=== PATIENT | female | born 1995 | race Caucasian/White ===

== ENCOUNTER 2016-08-18 18:43 | Inpatient (IN) | payer BC ==
[~2016-08-18] VITALS: Ht 165.1 cm; Wt 56.0 kg
[2016-08-18] MEDS ORDERED: SOD CHLORIDE 0.9% 500 ML IV STA (19:37)
[2016-08-18] MEDS ORDERED: LORAZEPAM 2 MG INJ IV ONE (20:00)
[2016-08-18 20:21] LABS: ADD SCAN DIFF NO
[2016-08-18 20:24] LABS: BASOPHILS % 0.3 % (0.0-2.0); EOSINOPHILS # 0.1 10^3/ul (0.0-0.5); EOSINOPHILS % 0.6 % (0.0-7.0); LYMPHOCYTES # 2.2 10^3/ul (0.8-2.9); LYMPHOCYTES % 18.5 % (15.0-51.0); MEAN CORPUSCULAR HEMOGLOBIN 26.7 pg (29.0-33.0); MEAN CORPUSCULAR HGB CONC 32.5 g/dl (32.0-37.0); MEAN CORPUSCULAR VOLUME 82.1 fl (82.0-101.0); MEAN PLATELET VOLUME 10.4 fl (7.4-10.4); MONOCYTE # 0.6 10^3/ul (0.3-0.9); NEUTROPHILS % 75.2 % (39.0-77.0); PLATELET COUNT 355 10^3/UL (140-415); RED BLOOD COUNT 4.87 10^6/ul (4.20-5.40); WHITE BLOOD COUNT 11.9 10^3/ul (4.8-10.8)
[2016-08-18] MEDS ORDERED: IBUP-1542 PO (20:28)
[2016-08-18] MEDS ORDERED: ACET1TAB40 PO (20:28)
--- NOTE | 2016-08-18 20:29 | RADRPT ---
PROCEDURE: CT Head without. CLINICAL INDICATION: Seizure. TECHNIQUE: The study was performed utilizing a multi-slice, multidetector CT scanner. Direct spira l 1 mm axial sections were obtained through the head without the use of intravenous contrast materia l. 1 or more of the following dose reduction techniques were utilized: Automated exposure control, adjustment of the mA and/or kV according to patient's size, iterative reconstruction technique. Co donna and sagittal reformations were obtained. The images were reviewed on a PACS workstation. RADIATION DOSE: CTDIvol: 38.4 mGyDLP: 623.5 mGy-cm COMPARISON: No prior studies are available for comparison. FINDINGS: There is no intracranial hemorrhage, extra-axial fluid collection, mass lesion, midline shift or hyd rocephalus. The ventricles, sulci and cisterns are within normal limits. The white matter is unrem arkable. The arana-white matter differentiation is preserved. The basal cisterns are patent. The m idline structures are intact. The orbits, calvarium and extracranial soft tissues are normal in nabil earance. The visualized paranasal sinuses, mastoid air cells and middle ear cavities are normally ae rated. IMPRESSION: 1. No acute intracranial abnormality. No intracranial hemorrhage, extra-axial fluid collection, ma ss lesion or hydrocephalous. RPTAT: HGAS .Chet Romero MD, MD Date Time Electronically viewed and signed by .Chet Romero MD, MD on 08/18/2016 20:29 .S/
[2016-08-18 20:40] LABS: CHLORIDE 102 mmol/L (97-110); SODIUM 140 mmol/L (135-144)
[2016-08-18 20:41] LABS: POTASSIUM 3.7 mmol/L (3.5-5.1)
[2016-08-18 20:43] LABS: ANION GAP 18 (8-16); CARBON DIOXIDE 24 mmol/L (21-31); CREATININE 0.69 mg/dl (0.44-1.00)
[2016-08-18 20:44] LABS: BLOOD UREA NITROGEN 17 mg/dl (7-20); CALCIUM 9.2 mg/dl (8.4-10.2); GLUCOSE 98 mg/dl (70-220)
[2016-08-18 20:50] LABS: ETHANOL < 10.0 mg/dl
[2016-08-18 20:52] LABS: BARBITURATES NEGATIVE (NEGATIVE); BENZODIAZEPINES NEGATIVE (NEGATIVE); CANNABINOIDS POSITIVE (NEGATIVE); COCAINE NEGATIVE (NEGATIVE); OPIATES NEGATIVE (NEGATIVE)
[2016-08-18 21:15] VITALS: TEMP 99.7
[2016-08-18] MEDS ORDERED: ONDANSETRON 4 MG INJ IV PRN (22:00)
[2016-08-18] MEDS ORDERED: ACETAMINOPHEN 325 MG TAB PO PRN (22:00)
--- NOTE | 2016-08-18 22:16 | ERA ---
ER Documentation Chief Complaint Date/Time DATE: 08/18/16 TIME: 22:11 Chief Complaint mom states had multiple seizures today HPI This is a 21-year-old female with no significant past medical history presents emergency room with 3 seizures today. The patient does not have a seizure disorder. Since this morning the patient has had 3 seizures that appear to be generalized tonic-clonic with postictal state and urinary incontinence. Patient has returned to baseline during each 1. No new medications drugs, no headaches or vision changes. She does have a mother with a history of intracranial process and seizure disorder that required surgery. She states that she dislocated her left elbow approximately 2 weeks ago and received procedural sedation with complete resolution return to baseline. ROS All systems reviewed and are negative except as per history of present illness. Medications Home Meds Reported Medications Ibuprofen* (Ibuprofen*) 600 Mg Tablet, 600 MG PO Q6H Y for PAIN, TAB 08/18/16 Acetaminophen with Codeine (Acetaminophen-Cod #3 Tablet) 1 Each Tablet, 1 TAB PO Q6H Y for PRN, #7 TAB 08/18/16 Allergies Allergies: Coded Allergies: morphine (Verified Allergy, Unknown, rash, 08/18/16) PMhx/Soc History of Surgery: No Anesthesia Reaction: No Hx Neurological Disorder: No Hx Respiratory Disorders: No Hx Cardiac Disorders: No Hx Psychiatric Problems: No Hx Miscellaneous Medical Probl: Yes (LT ELBOW DISLOCATION) Hx Alcohol Use: No Hx Substance Use: Yes (MARIJUANA ) Hx Tobacco Use: No Smoking Status: Current every day smoker FmHx Family History: No diabetes Physical Exam Vitals Vital Signs Date Time Temp Pulse Resp B/P Pulse Ox O2 Delivery O2 Flow Rate FiO2 08/18/16 21:15 99.7 97 13 110/63 96 Room Air 08/18/16 20:19 92 16 113/76 100 Room Air 08/18/16 19:20 99.0 84 18 115/73 100 Room Air 08/18/16 18:49 98.4 95 20 110/65 99 Physical Exam General: Well developed, well nourished, no acute distress Head: Normocephalic, atraumatic. Eyes: Pupils equally reactive, EOM intact ENT: Moist mucous membranes Neck: Supple, no lymphadenopathy Respiratory: Lungs clear bilaterally, no distress Cardiovascular: RRR, no murmurs, rubs, or gallops Abdominal: Soft, non-tender, non-distended, no peritoneal signs : Deferred MSK: No edema, no unilateral swelling, 5/5 strength. Left upper extremity in a splint Neurologic: Alert and oriented, moving all extremities, normal speech, no focal weakness, no cerebellar signs Skin: No rash Psych: Normal mood Result Diagram: 08/18/16193908/18/161939 Results 24 hrs Laboratory Tests Test 08/18/16 19:40 08/18/16 19:47 08/18/16 20:08 White Blood Count 11.910^3/ul Red Blood Count 4.8710^6/ul Hemoglobin 13.0g/dl Hematocrit 40.0% Mean Corpuscular Volume 82.1fl Mean Corpuscular Hemoglobin 26.7pg Mean Corpuscular Hemoglobin Concent 32.5g/dl Red Cell Distribution Width 13.0% Platelet Count 96868^3/UL Mean Platelet Volume 10.4fl Neutrophils % 75.2% Lymphocytes % 18.5% Monocytes % 5.0% Eosinophils % 0.6% Basophils % 0.3% Nucleated Red Blood Cells % 0.0/100WBC Neutrophils # 9.010^3/ul Lymphocytes # 2.210^3/ul Monocytes # 0.610^3/ul Eosinophils # 0.110^3/ul Basophils # 0.010^3/ul Nucleated Red Blood Cells # 0.010^3/ul Sodium Level 140mmol/L Potassium Level 3.7mmol/L Chloride Level 102mmol/L Carbon Dioxide Level 24mmol/L Anion Gap 18 Blood Urea Nitrogen 17mg/dl Creatinine 0.69mg/dl Glucose Level 98mg/dl Calcium Level 9.2mg/dl Serum HCG, Qualitative NEGATIVE Ethyl Alcohol Level < 10.0mg/dl Bedside Glucose 101mg/dL Urine Opiates Screen NEGATIVE Urine Barbiturates NEGATIVE Urine Amphetamines Screen NEGATIVE Urine Benzodiazepines Screen NEGATIVE Urine Cocaine Screen NEGATIVE Urine Cannabinoids POSITIVE Current Medications Medications (Trade) Dose Ordered Sig/Doni Route PRN Reason Start Time Stop Time Status Last Admin Dose Admin Sodium Chloride (NS) 500 ml @ 500 mls/hr Q1H STAT IV 08/18/16 19:37 08/18/16 20:36 DC 08/18/16 19:53 Lorazepam (Ativan) 0.5 mg ONCE ONCE IV 08/18/16 20:00 08/18/16 20:01 DC 08/18/16 19:53 Ondansetron HCl (Zofran Inj) 4 mg ER BRIDGE PRN IV NAUSEA AND/OR VOMITING 08/18/16 22:00 08/19/16 21:59 Acetaminophen (Tylenol Tab) 650 mg ER BRIDGE PRN PO MILD PAIN/FEVER 08/18/16 22:00 08/19/16 21:59 Procedures/MDM EKG, MONITORS, & DIAGNOSTIC IMAGING: CT brain: No acute intracranial process EKG: I reviewed and interpreted a 12-lead EKG. Rhythm: Normal sinus rhythm Ectopy: None Intervals: No abnormalities ST segments: No elevations or depressions T waves: No contiguous inversions LAB INTERPRETATION: No leukocytosis MEDICAL DECISION MAKING: The patient presents with 3 seizures that appear to be consistent with generalized tonic-clonic seizure. Unclear etiology or significance of these seizures. The patient does not have a seizure disorder, no clear trigger, no drugs intoxications or electrolyte disturbances noted. No evidence of meningitis. No evidence of increased intracranial pressure. She has a nonfocal neurologic examination. ER COURSE: The patient was given 0.5 mg of Ativan. She is resting comfortably. Her laboratory testing and diagnostic imaging is unrevealing. Unclear significance of the patient's 3 seizures but given 3 [id number] seizures I would recommend inpatient hospitalization for observation. The patient and family are agreeable. I kept the patient and/or family informed of laboratory and diagnostic imaging results throughout the emergency room course. DISPOSITION PLAN: Telemetry admission for management of seizure disorder CONSULTATION: Accepting care team and consultations: I discussed the current laboratory data, diagnostic imaging and emergency care provided. Admitting team: Dr. Terrazas Admitting team indication: Insurance directed Departure Diagnosis: Primary Impression: Generalized tonic-clonic seizure Condition: Stable DHIRAJ WALTER MD August 18, 2016 22:16
[2016-08-18 22:52] VITALS: PULSE 86
[2016-08-18 23:07] VITALS: Ht 165.1 cm; Wt 56.0 kg
[2016-08-18 23:17] VITALS: BP 104/59; PULSE 89; RESP 16
--- NOTE | 2016-08-18 23:54 | HP ---
Date/Time of Note Date/Time of Note DATE: 08/18/16 TIME: 23:54 Assessment/Plan VTE Prophylaxis VTE Prophylaxis Intervention: LMWH Lines/Catheters IV Catheter Type (from [facility]): Saline Lock Urinary Cath still in place: No Assessment/Plan Chief Complaint/Hosp Course This is a 21-year-old female being admitted to the telemetry floor for: #1 suspected new onset seizures: Etiology unknown at this time, neurologic versus drug-induced versus dehydration versus other causes. Patient was witnessed to have 3 seizures today. Her mother describes them as tonic-clonic of note patient was positive for marijuana on her a UDS screen which she did state that she was using. No sources of infection found at this time. At the current time will admit the patient to telemetry floor. As needed Ativan for any further seizures. Will consult neurology. If more seizures are witnessed prior to neurology evaluation will load the patient with Keppra. CT scan of the brain was within normal values. Will order MRI of the brain in the a.m. IV fluids. Possible EEG per neurology #2 leukocytosis: Likely reactive secondary to seizures, will continue to follow. #3 family history of seizures: Her mother has a history of seizures status post brain tumor. Further evaluation of the patient by neurology #4 DVT and GI prophylaxis: Lovenox, famotidine Problems: HPI/ROS Admit Date/Time Admit Date/Time August 18, 2016 at 21:42 Hx of Present Illness Chief complaint: Seizures This is a 21-year-old female with no significant past medical history presents emergency room with 3 seizures today. The patient does not have a seizure disorder. Since this morning the patient has had 3 seizures that appear to be generalized tonic-clonic with postictal state and urinary incontinence. Patient has returned to baseline during each one. No new medications drugs, no headaches or vision changes. She does have a mother with a history of intracranial process and seizure disorder that required surgery. She states that she dislocated her left elbow approximately 2 weeks ago and received procedural sedation with complete resolution return to baseline. She has been smoking marijuana. She also went to a spell earlier today and her mom was concerned that she may be dehydrated. Of note her mom also states that she has been under a lot of stress lately as her brother has been dealing with some behavioral issues and that has been putting a lot of stress on her. Allergies: Morphine Medications: See MAR ROS Const: As per HPI Eyes : No pain discharge or redness or change in visual acuity ENT: No pain, sore throat, congestion, congestion, dysphagia or discharge Respiratory: No shortness of breath, cough, sputum, wheezing, or pleuritic pain Cardiovascular: No chest pain, palpitation, PND, or edema GI : no change in appetite, abdominal pain, nausea, vomiting, diarrhea, constipation, or change in the color his stool Genitourinary: No dysuria, hematuria, flank pain , discharge or CVA tenderness Musculoskeletal: No joint pain, back pain, neck pain, restricted range of motion in neck or joints Skin: No rash, bruising or hives Neuro: As per HPI, patient herself does not recall any of the seizures. She does acknowledge that she wet herself and her mom stated that she may even sold herself after the seizure. Endocrine: No polyuria, polydipsia, temperature intolerance Psych: No hallucination, depression, anxiety or suicidal ideation PMH/Family/Social Past Medical History Medical History: no pertinent history Past Surgical History Past Surgical Hx: no surgical history Family History Significant Family History: seizures (Mom status post brain tumor) Social History Alcohol Use: none Smoking Status: Never smoker Drug Use: marijuana Exam/Review of Systems Vital Signs Vitals Vital Signs Date Time Temp Pulse Resp B/P Pulse Ox O2 Delivery O2 Flow Rate FiO2 08/18/16 23:17 98.7 89 16 104/59 98 Room Air Exam Exam General: Patient is somnolent but easily arousable. She answers questions appropriately. HEENT: Atraumatic, normocephalic. The pupils are equal, round and reactive. No overt trauma to the tongue noted. Neck: Supple with full range of motion. No rigidity or meningismus Chest: Nontender Lungs: Clear to auscultation bilaterally no crackles rales or wheezing Heart: Normal S1-S2, Regular rhythm and rate. No murmur, S3, or S4 Abdomen: Soft , nontender, nondistended , bowel sounds are present. No guarding no rebound tenderness , No masses or organomegaly. No costovertebral temporal angle mass Extremities: Normal to inspection, no edema no cyanosis Neurologic: Patient is somnolent but easily arousable. Answers questions appropriately and coherently. Cranial nerves II through XII intact. No focal weakness. Additional Comments ROCEDURE: CT Head without. CLINICAL INDICATION: Seizure. TECHNIQUE: The study was performed utilizing a multi-slice, multidetector CT scanner. Direct spiral 1 mm axial sections were obtained through the head without the use of intravenous contrast material. 1 or more of the following dose reduction techniques were utilized: Automated exposure control, adjustment of the mA and/or kV according to patient's size, iterative reconstruction technique. Coronal and sagittal reformations were obtained. The images were reviewed on a PACS workstation. RADIATION DOSE: CTDIvol: 38.4 mGy DLP: 623.5 mGy-cm COMPARISON: No prior studies are available for comparison. FINDINGS: There is no intracranial hemorrhage, extra-axial fluid collection, mass lesion, midline shift or hydrocephalus. The ventricles, sulci and cisterns are within normal limits. The white matter is unremarkable. The arana-white matter differentiation is preserved. The basal cisterns are patent. The midline structures are intact. The orbits, calvarium and extracranial soft tissues are normal in appearance. The visualized paranasal sinuses, mastoid air cells and middle ear cavities are normally aerated. IMPRESSION: 1. No acute intracranial abnormality. No intracranial hemorrhage, extra-axial fluid collection, mass lesion or hydrocephalous. RPTAT: HGAS .Chet Romero MD, MD Date Time Electronically viewed and signed by .Chet Romero MD, MD on 08/18/2016 20: 29 Labs Result Diagram: 08/18/16193908/18/161939 DARIUS HOFF August 18, 2016 23:54
[2016-08-19] VITALS (11 sets, daily range): BP systolic 91–124; BP diastolic 53–75; PULSE 79–156; RESP 16–18
[2016-08-19] MEDS ORDERED: NACL 0.9% 3 ML SYG IV SCH
[2016-08-19] MEDS ORDERED: ACETAMINOPHEN 325 MG TAB PO PRN
[2016-08-19] MEDS ORDERED: LORAZEPAM 2 MG INJ IV PRN
[2016-08-19] MEDS: SOD CHLORIDE 0.9% 1,000 ML IV SCH ×2 (01:51→13:28)
[2016-08-19] MEDS ORDERED: ONDANSETRON 4 MG INJ IV PRN (04:30)
[2016-08-19] MEDS ORDERED: LORAZEPAM 2 MG INJ IV ONE (04:30)
[2016-08-19 07:26] LABS: ADD SCAN DIFF NO
[2016-08-19 07:28] LABS: BASOPHILS % 0.3 % (0.0-2.0); EOSINOPHILS % 0.2 % (0.0-7.0); HEMATOCRIT 38.6 % (37.0-47.0); HEMOGLOBIN 12.2 g/dl (12.0-16.0); LYMPHOCYTES % 20.1 % (15.0-51.0); MEAN CORPUSCULAR HEMOGLOBIN 26.1 pg (29.0-33.0); MEAN CORPUSCULAR HGB CONC 31.6 g/dl (32.0-37.0); MEAN CORPUSCULAR VOLUME 82.7 fl (82.0-101.0); MEAN PLATELET VOLUME 9.9 fl (7.4-10.4); MONOCYTE # 0.5 10^3/ul (0.3-0.9); MONOCYTES % 4.7 % (0.0-11.0); NEUTROPHIL # 7.3 10^3/ul (1.6-7.5); NEUTROPHILS % 74.4 % (39.0-77.0); PLATELET COUNT 326 10^3/UL (140-415); RED BLOOD COUNT 4.67 10^6/ul (4.20-5.40); RED CELL DISTRIBUTION WIDTH 13.2 % (11.5-14.5); WHITE BLOOD COUNT 9.8 10^3/ul (4.8-10.8)
[2016-08-19 07:56] LABS: ALBUMIN/GLOBULIN RATIO 1.53; BILIRUBIN,INDIRECT 0.2 mg/dl (0-1.1); BILIRUBIN,TOTAL 0.2 mg/dl (0.2-1.3); CREATININE 0.63 mg/dl (0.44-1.00); POTASSIUM 3.9 mmol/L (3.5-5.1); TOTAL PROTEIN 6.6 g/dl (6.1-8.1)
[2016-08-19] MEDS ORDERED: LEVETIRACETAM 1000 MG (PMX) 100 ML IVPB ONE (08:00)
[2016-08-19 08:18] LABS: THYROID STIMULATING HORMONE 0.919 MIU/L (0.465-4.680)
[2016-08-19] MEDS ORDERED: FAMOTIDINE 20 MG TAB PO SCH (09:00)
[2016-08-19] MEDS ORDERED: ENOXAPARIN 40 MG/0.4 ML SYG SC SCH (09:00)
--- NOTE | 2016-08-19 14:32 | PN ---
Date/Time of Note Date/Time of Note DATE: 08/19/16 TIME: 14:29 Assessment/Plan VTE Prophylaxis VTE Prophylaxis Intervention: SCD's Lines/Catheters IV Catheter Type (from [facility]): Peripheral IV Urinary Cath still in place: No Assessment/Plan Assessment/Plan This is a 21-year-old female being admitted to the telemetry floor for: 1. New onset seizures: Etiology unknown at this time, neurologic versus drug- induced versus dehydration versus other causes. Patient was witnessed to have 3 seizures today. Her mother describes them as tonic-clonic. * CT scan of the brain was within normal values / MRI of the brain and EEG pending / Neurology eval 2. Marijuana user of note patient was positive for marijuana on her a UDS screen which she did state that she was using. 3. leukocytosis: Likely reactive secondary to seizures, Resolved 4. family history of seizures: Her mother has a history of seizures status post brain tumor. Further evaluation of the patient by neurology #4 DVT and GI prophylaxis: Lovenox, famotidine Subjective 24 Hr Interval Summary Free Text/Dictation Patient doing very well. Reports feeling much better. Exam/Review of Systems Vital Signs Vitals Vital Signs Date Time Temp Pulse Resp B/P Pulse Ox O2 Delivery O2 Flow Rate FiO2 08/19/16 12:17 95 08/19/16 11:42 98.9 16 96/53 95 08/19/16 04:50 Room Air Intake and Output 08/18/16 08/18/16 08/19/16 15:00 23:00 07:00 Intake Total 500 ml 0 ml Output Total 1 ml Balance 500 ml -1 ml Exam GENERAL APPEARANCE: Well developed, well nourished, in no acute distress. SKIN: Gross inspection of the skin reveals no rashes, ulcerations or petechiae. HEENT: The sclerae were anicteric and conjunctivae were pink and moist. Extraocular movements were intact and pupils were equal, round, and reactive to light with normal accommodation. External inspection of the ears and nose showed no scars, lesions, or masses. Posterior pharynx was clear of erythema or exudate NECK: Supple and symmetric. There was no thyroid enlargement, and no tenderness , or masses were felt. CHEST: Normal AP diameter and movement . LUNGS: Auscultation of the lungs revealed normal breath sounds without any other adventitious sounds or rubs. CARDIOVASCULAR: There was a regular rate and rhythm without any murmurs, gallops , rubs. The carotid pulses were normal and 2+ bilaterally without bruits. Radial pulses were 2+ and symmetric. ABDOMEN: Soft and nontender with normal bowel sounds. No ascites was noted. LYMPH NODES: No lymphadenopathy was appreciated in the neck. MUSCULOSKELETAL: There was no tenderness or effusions noted. Muscle strength and tone were normal. EXTREMITIES: No cyanosis, clubbing or edema. NEUROLOGIC: Alert and oriented x 3. Normal affect PSYCHIATRIC: Normal mood and affect, not suicidal, not homicidal, no hallucinations, normal insight Results Result Diagram: 08/19/16 0656 08/19/16 0556 Results 24 hrs Laboratory Tests Test 08/18/16 19:40 08/18/16 19:47 08/18/16 20:08 08/19/16 05:56 White Blood Count 11.9 H Red Blood Count 4.87 Hemoglobin 13.0 Hematocrit 40.0 Mean Corpuscular Volume 82.1 Mean Corpuscular Hemoglobin 26.7 L Mean Corpuscular Hemoglobin Concent 32.5 Red Cell Distribution Width 13.0 Platelet Count 355 Mean Platelet Volume 10.4 Neutrophils % 75.2 Lymphocytes % 18.5 Monocytes % 5.0 Eosinophils % 0.6 Basophils % 0.3 Nucleated Red Blood Cells % 0.0 Neutrophils # 9.0 H Lymphocytes # 2.2 Monocytes # 0.6 Eosinophils # 0.1 Basophils # 0.0 Nucleated Red Blood Cells # 0.0 Sodium Level 140 138 Potassium Level 3.7 3.9 Chloride Level 102 109 Carbon Dioxide Level 24 23 Anion Gap 18 H 10 # Blood Urea Nitrogen 17 13 Creatinine 0.69 0.63 Glucose Level 98 99 Calcium Level 9.2 9.0 Serum HCG, Qualitative NEGATIVE Ethyl Alcohol Level < 10.0 Bedside Glucose 101 Urine Opiates Screen NEGATIVE Urine Barbiturates NEGATIVE Urine Amphetamines Screen NEGATIVE Urine Benzodiazepines Screen NEGATIVE Urine Cocaine Screen NEGATIVE Urine Cannabinoids POSITIVE Hemoglobin A1c 5.2 Total Bilirubin 0.2 Direct Bilirubin 0.00 Indirect Bilirubin 0.2 Aspartate Amino Transf (AST/SGOT) 29 Alanine Aminotransferase (ALT/SGPT) 29 Alkaline Phosphatase 56 Total Protein 6.6 Albumin 4.0 Globulin 2.60 Albumin/Globulin Ratio 1.53 Thyroid Stimulating Hormone (TSH) 0.919 Test 08/19/16 06:56 White Blood Count 9.8 Red Blood Count 4.67 Hemoglobin 12.2 Hematocrit 38.6 Mean Corpuscular Volume 82.7 Mean Corpuscular Hemoglobin 26.1 L Mean Corpuscular Hemoglobin Concent 31.6 L Red Cell Distribution Width 13.2 Platelet Count 326 Mean Platelet Volume 9.9 Neutrophils % 74.4 Lymphocytes % 20.1 Monocytes % 4.7 Eosinophils % 0.2 Basophils % 0.3 Nucleated Red Blood Cells % 0.0 Neutrophils # 7.3 Lymphocytes # 2.0 Monocytes # 0.5 Eosinophils # 0.0 Basophils # 0.0 Nucleated Red Blood Cells # 0.0 Medications Medications Current Medications Sodium Chloride (NS) 1,000 ml @ 75 mls/hr [id number] IV Last administered on 08/19 13:28; Admin Dose 75 MLS/HR; Start 08/18/16 at 23:48 Lorazepam (Ativan) 4 mg Q6H PRN IV seizure; Start 08/19/16 at 00:00 Acetaminophen (Tylenol Tab) 650 mg Q6H PRN PO PAIN LEVEL 1-3 OR FEVER; Start at 00:00 Famotidine (Pepcid) 20 mg Q12 PO Last administered on 08/19/16 09:14; Admin Dose 20 MG; Start 08/19/16 at 09:00 Enoxaparin Sodium (Lovenox) 40 mg DAILY SC Last administered on 08/19/16 09:20 ; Admin Dose 40 MG; Start 08/19/16 at 09:00 Ondansetron HCl (Zofran Inj) 4 mg Q6H PRN IV NAUSEA AND/OR VOMITING Last administered on 08/19/16 04:25; Admin Dose 4 MG; Start 08/19/16 at 04:30 Procedures Procedures PROCEDURE: CT Head without. CLINICAL INDICATION: Seizure. TECHNIQUE: The study was performed utilizing a multi-slice, multidetector CT scanner. Direct spiral 1 mm axial sections were obtained through the head without the use of intravenous contrast material. 1 or more of the following dose reduction techniques were utilized: Automated exposure control, adjustment of the mA and/or kV according to patient's size, iterative reconstruction technique. Coronal and sagittal reformations were obtained. The images were reviewed on a PACS workstation. RADIATION DOSE: CTDIvol: 38.4 mGy DLP: 623.5 mGy-cm COMPARISON: No prior studies are available for comparison. FINDINGS: There is no intracranial hemorrhage, extra-axial fluid collection, mass lesion, midline shift or hydrocephalus. The ventricles, sulci and cisterns are within normal limits. The white matter is unremarkable. The arana-white matter differentiation is preserved. The basal cisterns are patent. The midline structures are intact. The orbits, calvarium and extracranial soft tissues are normal in appearance. The visualized paranasal sinuses, mastoid air cells and middle ear cavities are normally aerated. IMPRESSION: 1. No acute intracranial abnormality. No intracranial hemorrhage, extra-axial fluid collection, mass lesion or hydrocephalous. RPTAT: HGAS .Chet Romero MD, MD Date Time Electronically viewed and signed by .Chet Romero MD, on 08/18/2016 20: 29 .ROD ABAD August 19, 2016 14:32
[2016-08-19] MEDS ORDERED: LEVE-5 PO (15:16)
--- NOTE | 2016-08-19 18:11 | RADRPT ---
PROCEDURE: MRI Brain without and with contrast. CLINICAL INDICATION: New onset seizure. TECHNIQUE: An MRI of the brain was performed utilizing the following sequences: Sagittal T1-weigh brina, axial T2-weighted, axial and coronal FLAIR, axial T1, coronal oblique 3-D FSPGR, coronal GRE ax ial diffusion-weighted with ADC mapping. Following the uneventful administration of 10 cc Magnevist, postcontrast axial and coronal T1-weighted images were obtained. Images were viewed on a PACS works [employer]. COMPARISON: Brain CT 08/18/2016. FINDINGS: Several images are degraded by motion. No diffusion weighted abnormalities are seen to suggest the presence of acute ischemia or recent inf arct. There is no intracranial hemorrhage, mass effect, or midline shift. No extra-axial fluid col lection is seen. The ventricles and sulci are age-appropriate. Bilateral hippocampi are symmetric i n size and signal intensity. The gradient echo images reveal no areas of susceptibility artifact to suggest blood degradation pro ducts or abnormal calcification. No abnormal intraparenchymal, meningeal or ependymal enhancement i s seen. No abnormal intracranial vascular flow voids are noted. The pituitary and sella reveal no abnormali ty. The suprasellar cistern is clear. The visualized paranasal sinuses demonstrate mild scattered m ucosal thickening. The mastoid air cells are clear. IMPRESSION: 1. No acute intracranial hemorrhage, infarction or mass. No intracranial parenchymal abnormal signa l intensity or enhancement. RPTAT: AA .Kami Mckeon MD, MD Date Time Electronically viewed and signed by .Kami Mckeon MD, MD on 08/19/2016 18:11 .N/
--- NOTE | 2016-08-19 19:11 | PDOCDIS ---
Discharge Instructions DIAGNOSIS Discharge Diagnosis: New onset seizures CONDITION Patient Condition: Stable HOME CARE INSTRUCTIONS: Diet Instructions: Regular ACTIVITY: Activity Restrictions: Do not Drive OTHER ORDERS: Other Orders: Please schedule appointment to see neurologist in the office. Information is below: Name, Degree: Adelaida Davies MD Specialty: Neurology Comments: Office Address: [address] [place] [address] Office Office Also you are not cleared to drive until cleared by neurologist ROD BETHEA August 19, 2016 19:11
--- NOTE | 2016-08-19 19:17 | DS ---
Date/Time of Note Date/Time of Note DATE: 08/19/16 TIME: 19:14 Discharge Summary Admission/Discharge Info Admit Date/Time August 18, 2016 at 21:42 Discharge Date/Time August 19, 2016 Final Diagnosis This is a 21-year-old female being admitted to the telemetry floor for: 1. New onset seizures: Etiology unknown at this time, neurologic versus drug- induced versus dehydration versus other causes. Patient was witnessed to have 3 seizures today. Her mother describes them as tonic-clonic. * CT scan of the brain was within normal values / as was MRI 2. Marijuana user of note patient was positive for marijuana on her a UDS screen which she did state that she was using. 3. leukocytosis: Likely reactive secondary to seizures, Resolved 4. family history of seizures: Her mother has a history of seizures status post brain tumor. #4 DVT and GI prophylaxis: Lovenox, famotidine Patient Condition: Stable Consults Neurology: Keke. Hx of Present Illness Chief complaint: Seizures This is a 21-year-old female with no significant past medical history presents emergency room with 3 seizures today. The patient does not have a seizure disorder. Since this morning the patient has had 3 seizures that appear to be generalized tonic-clonic with postictal state and urinary incontinence. Patient has returned to baseline during each one. No new medications drugs, no headaches or vision changes. She does have a mother with a history of intracranial process and seizure disorder that required surgery. She states that she dislocated her left elbow approximately 2 weeks ago and received procedural sedation with complete resolution return to baseline. She has been smoking marijuana. She also went to a spell earlier today and her mom was concerned that she may be dehydrated. Of note her mom also states that she has been under a lot of stress lately as her brother has been dealing with some behavioral issues and that has been putting a lot of stress on her. Allergies: Morphine Medications: See MAR. Hospital Course 21-year-old female who had 3 witnessed seizures the first was after being at this prior however she had another seizure witnessed by her mother as long after that I will weakness in the ER. She was admitted for seizure workup. MRI of the brain as well as a CAT scan of the brain were all negative. Urine drug screen was positive for marijuana which patient admits to using on a daily basis. However exact cause of seizure was not clear he could be associated with marijuana use. However neurology recommends that patient be started on Keppra and follow-up with him in the office as outpatient because patient did not want to wait for neurology review in-house. Also MRI was done but was not reported and patient did not want to wait for report. So at this time she is being discharged in stable condition but our recommendation is no driving until cleared by neurology and she is to stay on Keppra 500 twice daily until cleared by neurology this has been communicated to patient and her mother. Comorbidities were also aggressively managed as per Med records. Patient at this time has been evaluated and examined in detail and is assessed to be in stable condition and ready for discharge. Home Meds Active Scripts Levetiracetam* (Keppra*) 500 Mg Tablet, 500 MG PO BID for 30 Days, TAB Prov:ROD BETHEAKoffi 08/19/16 Reported Medications Ibuprofen* (Ibuprofen*) 600 Mg Tablet, 600 MG PO Q6H Y for PAIN, TAB 08/18/16 Acetaminophen with Codeine (Acetaminophen-Cod #3 Tablet) 1 Each Tablet, 1 TAB PO Q6H Y for PRN, #7 TAB 08/18/16 Primary Care Provider Care Physician No Primary Time spent on discharge: > 30 minutes Pending Labs Laboratory Tests Test 08/18/16 19:40 08/18/16 19:47 08/18/16 20:08 08/19/16 05:56 White Blood Count 11.910^3/ul (4.8-10.8) Red Blood Count 4.8710^6/ul (4.20-5.40) Hemoglobin 13.0g/dl (12.0-16.0) Hematocrit 40.0% (37.0-47.0) Mean Corpuscular Volume 82.1fl (82.0-101.0) Mean Corpuscular Hemoglobin 26.7pg (29.0-33.0) Mean Corpuscular Hemoglobin Concent 32.5g/dl (32.0-37.0) Red Cell Distribution Width 13.0% (11.5-14.5) Platelet Count 74595^3/UL (140-415) Mean Platelet Volume 10.4fl (7.4-10.4) Neutrophils % 75.2% (39.0-77.0) Lymphocytes % 18.5% (15.0-51.0) Monocytes % 5.0% (0.0-11.0) Eosinophils % 0.6% (0.0-7.0) Basophils % 0.3% (0.0-2.0) Nucleated Red Blood Cells % 0.0/100WBC (0.0-0.0) Neutrophils # 9.010^3/ul (1.6-7.5) Lymphocytes # 2.210^3/ul (0.8-2.9) Monocytes # 0.610^3/ul (0.3-0.9) Eosinophils # 0.110^3/ul (0.0-0.5) Basophils # 0.010^3/ul (0.0-0.1) Nucleated Red Blood Cells # 0.010^3/ul (0.0-0.0) Sodium Level 140mmol/L (135-144) 138mmol/L (135-144) Potassium Level 3.7mmol/L (3.5-5.1) 3.9mmol/L (3.5-5.1) Chloride Level 102mmol/L (97-110) 109mmol/L (97-110) Carbon Dioxide Level 24mmol/L (21-31) 23mmol/L (21-31) Anion Gap 18 (8-16) 10 (8-16) Blood Urea Nitrogen 17mg/dl (7-20) 13mg/dl (7-20) Creatinine 0.69mg/dl (0.44-1.00) 0.63mg/dl (0.44-1.00) Glucose Level 98mg/dl (70-220) 99mg/dl (70-220) Calcium Level 9.2mg/dl (8.4-10.2) 9.0mg/dl (8.4-10.2) Serum HCG, Qualitative NEGATIVE (NEGATIVE) Ethyl Alcohol Level < 10.0mg/dl Bedside Glucose 101mg/dL (70-220) Urine Opiates Screen NEGATIVE (NEGATIVE) Urine Barbiturates NEGATIVE (NEGATIVE) Urine Amphetamines Screen NEGATIVE (NEGATIVE) Urine Benzodiazepines Screen NEGATIVE (NEGATIVE) Urine Cocaine Screen NEGATIVE (NEGATIVE) Urine Cannabinoids POSITIVE (NEGATIVE) Hemoglobin A1c 5.2% (0-5.9) Total Bilirubin 0.2mg/dl (0.2-1.3) Direct Bilirubin 0.00mg/dl (0.00-0.20) Indirect Bilirubin 0.2mg/dl (0-1.1) Aspartate Amino Transf (AST/SGOT) 29IU/L (15-46) Alanine Aminotransferase (ALT/SGPT) 29IU/L (13-69) Alkaline Phosphatase 56IU/L (42-121) Total Protein 6.6g/dl (6.1-8.1) Albumin 4.0g/dl (3.3-4.9) Globulin 2.60g/dl (1.3-3.2) Albumin/Globulin Ratio 1.53 Thyroid Stimulating Hormone (TSH) 0.919MIU/L (0.465-4.680) Test 08/19/16 06:56 White Blood Count 9.810^3/ul (4.8-10.8) Red Blood Count 4.6710^6/ul (4.20-5.40) Hemoglobin 12.2g/dl (12.0-16.0) Hematocrit 38.6% (37.0-47.0) Mean Corpuscular Volume 82.7fl (82.0-101.0) Mean Corpuscular Hemoglobin 26.1pg (29.0-33.0) Mean Corpuscular Hemoglobin Concent 31.6g/dl (32.0-37.0) Red Cell Distribution Width 13.2% (11.5-14.5) Platelet Count 00111^3/UL (140-415) Mean Platelet Volume 9.9fl (7.4-10.4) Neutrophils % 74.4% (39.0-77.0) Lymphocytes % 20.1% (15.0-51.0) Monocytes % 4.7% (0.0-11.0) Eosinophils % 0.2% (0.0-7.0) Basophils % 0.3% (0.0-2.0) Nucleated Red Blood Cells % 0.0/100WBC (0.0-0.0) Neutrophils # 7.310^3/ul (1.6-7.5) Lymphocytes # 2.010^3/ul (0.8-2.9) Monocytes # 0.510^3/ul (0.3-0.9) Eosinophils # 0.010^3/ul (0.0-0.5) Basophils # 0.010^3/ul (0.0-0.1) Nucleated Red Blood Cells # 0.010^3/ul (0.0-0.0) ROD BETHEA. August 19, 2016 19:17
== END 2016-08-19 19:45 | disposition home or self-care (01) | DRG 101 ==
LOC: E/R 18:43 → MS4 21:42
PROVIDERS: ADMIT Family Medicine; ATTEND Family Medicine
DX: R56.9 Unspecified convulsions (principal); F12.90 Cannabis use, unspecified, uncomplicated
CPT/HCPCS: 36415; 70450; 70553; 80048; 80053; 80306; 80307; 82962; 83036; 84443; 84703; 85025; 93005; 96361; 96374; J1650; J1953; J2060; J2405; J7030; J7040

== ENCOUNTER 2016-12-06 08:37 | Emergency (ER) | payer BC ==
[~2016-12-06] VITALS: Ht 167.6 cm; Wt 56.8 kg
[~2016-12-06 08:37] MED LIST: ACET1TAB40 PO; IBUP-1542 PO; LEVE-5 PO
[2016-12-06] MEDS ORDERED: LORAZEPAM 2 MG INJ IV STA (08:43)
[2016-12-06 08:44] VITALS: Ht 167.6 cm; Wt 56.8 kg
[2016-12-06 09:19] LABS: BASOPHIL # 0.1 10^3/ul (0.0-0.1); BASOPHILS % 0.7 % (0.0-2.0); EOSINOPHILS # 0.2 10^3/ul (0.0-0.5); EOSINOPHILS % 2.1 % (0.0-7.0); HEMATOCRIT 44.1 % (37.0-47.0); HEMOGLOBIN 14.3 g/dl (12.0-16.0); LYMPHOCYTES % 24.6 % (15.0-51.0); MEAN CORPUSCULAR HEMOGLOBIN 26.7 pg (29.0-33.0); MEAN CORPUSCULAR HGB CONC 32.4 g/dl (32.0-37.0); MEAN CORPUSCULAR VOLUME 82.3 fl (82.0-101.0); MEAN PLATELET VOLUME 10.2 fl (7.4-10.4); MONOCYTE # 0.4 10^3/ul (0.3-0.9); MONOCYTES % 4.5 % (0.0-11.0); NEUTROPHILS % 67.9 % (39.0-77.0); PLATELET COUNT 352 10^3/UL (140-415); RED BLOOD COUNT 5.36 10^6/ul (4.20-5.40); RED CELL DISTRIBUTION WIDTH 13.3 % (11.5-14.5); WHITE BLOOD COUNT 8.2 10^3/ul (4.8-10.8)
--- NOTE | 2016-12-06 09:26 | RADRPT ---
PROCEDURE: CT brain without contrast CLINICAL INDICATION: Seizure, fall, hit head TECHNIQUE: CT of the brain without contrast was performed on a multidetector CT scanner, with multi planar reformats. One or more of the following dose reduction techniques were used: Automated expos ure control, adjustment in mA and / or kV according to patient size, use of iterative reconstructive technique. CTDIvol = 45 mGy; DLP = 630 mGy-cm. COMPARISON: None available FINDINGS: No acute intracranial hemorrhage is identified. No extra-axial fluid collection is seen. There is no mass effect. No midline shift is identified. Ventricles and sulci are within normal limits for size and configuration. The density of the brain is unremarkable. Cabrera-white differentiation is preserved. There is right frontal scalp swelling without underlying fracture identified. Calvarium and skull ba se appear intact. Mastoid air cells and imaged paranasal sinuses grossly clear. IMPRESSION: Right frontal scalp swelling, without underlying fracture or evidence of acute intracranial patholog y. RPTAT: VV .Elbert Navarro MD, Date Time Electronically viewed and signed by .Elbert Navarro MD, on 12/06/2016 09:25 .O/
[2016-12-06 09:41] LABS: CALCIUM 9.6 mg/dl (8.4-10.2); CREATININE 0.76 mg/dl (0.44-1.00); POTASSIUM 4.2 mmol/L (3.5-5.1)
--- NOTE | 2016-12-06 09:50 | ERD ---
ER Documentation Chief Complaint Date/Time DATE: 12/06/16 TIME: 09:47 Chief Complaint BROUGHT IN VIA EMS DUE TO SEIZURE AND FELL HIT FACE ON NIGHT STAND HPI 21-year-old female presents the emergency department after a witnessed grand mal seizure. Patient states that she has had seizures previously. She was evaluated in our emergency department and hospital with a normal CT scan and MRI approximately 1 month ago. Since then, she states she has been compliant with her Keppra. She does continue to use marijuana and THC containing compounds. Today, she had a spontaneous, self-limited grand mal seizure. She had no preceding headache. She denied focal weakness or numbness. She did hit her head during the seizure. I have reviewed the [facility] pre-hospital care. Pre-hospital vital signs were reviewed. Pre-hospital diagnostic tests were reviewed. Upon arrival, patient is asymptomatic with no headache or weakness. ROS All systems reviewed and are negative except as per history of present illness. Medications Home Meds Active Scripts Levetiracetam* (Keppra*) 500 Mg Tablet, 500 MG PO BID for 30 Days, TAB Prov:LAKEROD 08/19/16 Reported Medications Ibuprofen* (Ibuprofen*) 600 Mg Tablet, 600 MG PO Q6H Y for PAIN, TAB 08/18/16 Acetaminophen with Codeine (Acetaminophen-Cod #3 Tablet) 1 Each Tablet, 1 TAB PO Q6H Y for PRN, #7 TAB 08/18/16 Allergies Allergies: Coded Allergies: morphine (Verified Allergy, Unknown, rash, 08/18/16) PMhx/Soc History of Surgery: No Anesthesia Reaction: Yes (difficult to sedate, needed sedation 3x for elbow injury ) Hx Neurological Disorder: No Hx Respiratory Disorders: No Hx Cardiac Disorders: No Hx Psychiatric Problems: No Hx Miscellaneous Medical Probl: No (EPILEPSY ) Hx Alcohol Use: No Hx Substance Use: Yes Hx Tobacco Use: No Smoking Status: Never smoker FmHx Noncontributory for chief complaint Physical Exam Vitals Vital Signs Date Time Temp Pulse Resp B/P Pulse Ox O2 Delivery O2 Flow Rate FiO2 12/06/16 08:44 98.6 100 18 107/65 100 Physical Exam GENERAL: The patient is well developed and appropriate for usual state of health in no apparent distress HEENT: Pupils equal, round, and reactive to light. EOMI. There is no scleral icterus. NECK: C-spine is soft and supple, there is no meningismus. There is no cervical lymphadenopathy. LUNGS: Clear to auscultation bilaterally. There are no rales, wheezes or rhonchi. HEART: Regular rate and rhythm, no murmurs, clicks, rubs or gallops. ABDOMEN: Soft, non-tender, non-distended. There are bowel sounds in all four quadrants. No rebound or guarding. EXTREMITIES: There is no peripheral cyanosis or edema. No focal swelling or erythema. NEURO: The patient moves all four extremities with 5/5 strength. Cranial nerves II - XII are intact. Normal gait. Alert and oriented SKIN: There is no apparent rash or petechiae. HEME/LYMPHATIC: There is no evidence of excessive bruising or lymphedema. PSYCHIATRIC: The patient does not appear anxious or depressed. Result Diagram: 12/06/16 0900 12/06/16 0900 Results 24 hrs Laboratory Tests Test 12/06/16 09:00 White Blood Count 8.210^3/ul Red Blood Count 5.3610^6/ul Hemoglobin 14.3g/dl Hematocrit 44.1% Mean Corpuscular Volume 82.3fl Mean Corpuscular Hemoglobin 26.7pg Mean Corpuscular Hemoglobin Concent 32.4g/dl Red Cell Distribution Width 13.3% Platelet Count 57172^3/UL Mean Platelet Volume 10.2fl Neutrophils % 67.9% Lymphocytes % 24.6% Monocytes % 4.5% Eosinophils % 2.1% Basophils % 0.7% Nucleated Red Blood Cells % 0.0/100WBC Neutrophils # (Manual) 5.510^3/ul Lymphocytes # 2.010^3/ul Monocytes # 0.410^3/ul Eosinophils # 0.210^3/ul Basophils # 0.110^3/ul Nucleated Red Blood Cells # 0.010^3/ul Sodium Level 141mmol/L Potassium Level 4.2mmol/L Chloride Level 106mmol/L Carbon Dioxide Level 23mmol/L Anion Gap 16 Blood Urea Nitrogen 15mg/dl Creatinine 0.76mg/dl Glucose Level 95mg/dl Calcium Level 9.6mg/dl Serum HCG, Qualitative NEGATIVE Current Medications Medications (Trade) Dose Ordered Sig/Doni Route PRN Reason Start Time Stop Time Status Last Admin Dose Admin Lorazepam (Ativan) 1 mg ONCE STAT IV 12/06/16 08:43 12/06/16 08:44 DC 12/06/16 09:00 Procedures/MDM Patient was taken to a room, seen and evaluated. Comfort measures were initiated. Diagnostic tests were ordered and reviewed. RADIOLOGY: reviewed with the radiologist REEVALUATION: Patient has remained neurologically normal and seizure-free. MEDICAL DECISION MAKING: This is a 21-year-old female who presents to the emergency department after a grand mal seizure. At this time, patient shows no evidence of residual neurologic dysfunction. Patient shows no evidence of intracranial concerns. These seizures are likely related to the patient's underlying use of marijuana. Patient otherwise appears to be clinically well and appropriate for outpatient care at this time. Departure Diagnosis: Primary Impression: Seizure disorder Condition: Stable Patient Instructions: Seizure, Recurrent [Adult] Additional Instructions: Continue your Keppra. You should NOT be using any marijuana or THC containing compounds as they will increase your chance of having a seizure. Do not drive until told you may do so by the neurologist. Return for any concerns ERIC FABIAN Dec 06, 2016 09:50
[2016-12-06] MEDS ORDERED: GABA-526 PO (09:57)
[2016-12-06 13:09] VITALS: BP 106/62; PULSE 80; RESP 18; TEMP 98.6
== END 2016-12-06 13:09 | disposition home or self-care (01) ==
LOC: E/R 08:37
DX: G40.909 Epilepsy, unspecified, not intractable, without status epilepticus (principal); R40.2252 Coma scale, best verbal response, oriented, at arrival to emergency department; R40.2142 Coma scale, eyes open, spontaneous, at arrival to emergency department; R40.2362 Coma scale, best motor response, obeys commands, at arrival to emergency department; R51 Headache
CPT/HCPCS: 36415; 70450; 80048; 84703; 85025; 96374; 99285; J2060